=== PATIENT | female | born 1960 | race Two or more races ===

== ENCOUNTER 2025-02-02 22:39 | Emergency (ER) | payer MEDICARE, OTHER ==
[~2025-02-02] VITALS: Ht 162.6 cm; Wt 50.0 kg
--- NOTE | 2025-02-02 22:48 | ECG ---
[facility] Test Date: 2025-02-02 Test Time: 22:41:11 Pat Name: WANDY KOCH Department: ED Room: Gender: F Manager Of Product: GLENN : 1960 Requested By: MICHAEL ALVAREZ Order Number: [id number] Reading MD: Booker Olson Measurements Intervals Reva Rate: 91 P: 63 MA: 141 QRS: 40 QRSD: 91 T: 45 QT: 409 QTc: 504 Interpretive Statements Sinus rhythm Atrial premature complexes Consider right atrial enlargement Probable anterior infarct, age indeterminate Prolonged QT interval Electronically Signed On 02-03-2025 17:54:46 PDT by Booker Olson Please click the below link to view image of tracing.
--- NOTE | 2025-02-02 23:02 | ED.PDOC ---
Altered Mental Status HPI Comments 65 year old female presents to the ED via EMS with a chief complaint of ALOC. Per EMS, patient's friend called 911 for a wellness check, due to last contact being Saturday (01/29/25), patient was staying at [address]. Upon arrival, patient was found on the ground between bed and wall, unresponsive, covered in dog feces and urine. EMS states the hotel room was covered in dog feces and urine, had a strong ammonia smell. EMS noticed patient's lips are swollen, dried blood around mouth. Patient is altered, poor historian, not answering questions. PMHx is unknown at this time. No other associated symptoms, modifiers, recent injuries or sick contacts present at this time. Chief Complaint: ALOC Time Seen by MD: 22:45 Reviewed Notes: Medications, Allergies Allergies: Coded Allergies: UNOBTAINABLE (Unverified , 02/02/25) ALOC Information Source: Emergency Med Personnel Mode of Arrival: EMS Severity: Moderate Timing: Hours Duration: Since onset Prehospital treatment: None Quality: Decreased Alertness, Change in Behavior Past Medical History PAST MEDICAL HISTORY: Unknown Surgical History: Unknown FINANCIAL AUDITOR History: Unknown Family History Family History: Unknown Social History Smoker: Unknown Alcohol: Unknown Drugs: Unknown Lives In: Other Unable to Obtain due to: Altered Mental Status Physical Exam General Appearance: Normal HEENT: Normal ENT Inspection, Pharynx Normal, TMs Normal Neck: Full Range of Motion, Non-Tender, Normal, Normal Inspection Respiratory: Chest Non-Tender, Lungs Clear, No Accessory Muscle Use, No Respiratory Distress, Normal Breath Sounds Cardiovascular: No Edema, No JVD, No Murmur, No Gallop, Normal Peripheral Pulses, Regular Rate/Rhythm Breast Exam: Deferred Gastrointestinal: No Organomegaly, Non Tender, No Pulsatile Mass, Normal Bowel Sounds, Soft Genitalia: Deferred Pelvic: Deferred Rectal: Deferred Extremities: No calf tenderness, Normal capillary refill, Normal inspection, Normal range of motion, Non-tender, No pedal edema Musculoskeletal : Apperance: Normal Neurologic: Speech Problem (arousable to voice, + exp aphasia), Other Cerebellar Function: Normal Reflexes: Normal Skin: Dry, Normal Color, Warm Lymphatic: No Adenopathy Was a procedure done? Was a procedure done?: No Differential Diagnosis (ALOC) Differential Diagnosis: Dehydration, Hypoglycemia, Encephalopathy, Meningitis, Sepsis, Hypoxemia, Seizure, Closed Head Injury, CVA, Mass Lesion, SAH, Drug Overdose, ETOH Intoxication, Other X-Ray, Labs, Meds, VS Vital Signs Date Time Temp Pulse Resp B/P (MAP) Pulse Ox O2 Delivery O2 Flow Rate FiO2 02/03/25 02:00 93 22 140/74 (96) 93 02/03/25 00:00 98.3 96 24 148/82 (104) 94 98.3 02/02/25 23:11 Room Air* 0 21 02/02/25 22:51 98.0 98 22 142/79 95 98.0 02/02/25 22:41 91 Lab Test 02/03/25 01:51 02/03/25 00:55 02/03/25 00:19 02/02/25 23:05 Range/Units Troponin I High Sensitivity 43 *H 38 *H 24 </=34 ng/L Urine Color Yellow Yellow Urine Clarity Turbid H Clear Urine pH 5.5 5.0-9.0 Urine Specific [place] 1.018 1.001-1.035 Urine Protein Trace H Negative Urine Ketones 1+ H Negative Urine Blood Negative Negative /uL Urine Nitrite Negative Negative Urine Bilirubin Negative Negative Urine Urobilinogen Normal Negative mg/dL Urine Leukocyte Esterase Negative Negative /uL Urine RBC None seen 0 - 4 /hpf Urine Microscopic WBC 3 0-5 /HPF Urine Squamous Epithelial Cells Few <5 /hpf Urine Bacteria None seen None Seen /hpf Urine Hyaline Casts Few 0 - 2 /lpf Urine Mucus Few None Seen Urine Glucose Normal Normal mg/dL Urine Opiates Screen Neg NEGATIVE Urine Fentanyl Screen Neg NEGATIVE Urine Barbiturates Screen Neg NEGATIVE Urine Phencyclidine Screen Neg NEGATIVE Urine Amphetamines Screen Neg NEGATIVE Urine Benzodiazepines Screen Neg NEGATIVE Urine Cocaine Screen Neg NEGATIVE Urine Cannabinoids Screen Neg NEGATIVE White Blood Count 26.1 H 4.4-10.8 10^3/uL Red Blood Count 3.99 L 4.0-5.20 10^6/uL Hemoglobin 12.5 12.2-16.2 g/dL Hematocrit 37.6 36.0-46.0 % Mean Corpuscular Volume 94.2 80.0-100.0 fL Mean Corpuscular Hemoglobin 31.4 28.0-32.0 pg Mean Corpuscular Hemoglobin Concent 33.3 32.0-36.0 g/dL Red Cell Distribution Width 14.5 H 11.8-14.3 % Platelet Count 340 140-450 10^3/uL Mean Platelet Volume 9.3 6.9-10.8 fL Neutrophils (%) (Auto) 84.8 H 37.0-80.0 % Lymphocytes (%) (Auto) 8.9 L 10.0-50.0 % Monocytes (%) (Auto) 6.1 0.0-12.0 % Eosinophils (%) (Auto) 0.0 0.0-7.0 % Basophils (%) (Auto) 0.2 0.0-2.0 % Neutrophils # (Auto) 22.1 H 1.6-8.6 10 ^3/uL Lymphocytes # (Auto) 2.3 0.4-5.4 10 ^3/uL Monocytes # (Auto) 1.6 H 0-1.3 10 ^3/uL Eosinophils # (Auto) 0 0-0.8 10 ^3/uL Basophils # (Auto) 0.1 0-0.2 10 ^3/uL Nucleated Red Blood Cells 0.2 % Prothrombin Time 15.1 H 9.3-11.8 sec Prothrombin Time INR 1.48 H 0.9-1.15 Activated Partial Thromboplast Time 26.8 24.5-34.5 SEC Sodium Level 143 136-145 mmol/L Potassium Level 3.2 L 3.5-5.1 mmol/L Chloride Level 101 98-107 mmol/L Carbon Dioxide Level 28 20-31 mmol/L Anion Gap 14 5-15 Blood Urea Nitrogen 24 H 9-23 mg/dL Creatinine 0.61 0.550-1.02 mg/dL Glomerular Filtration Rate Calc 99 >90 mL/min BUN/Creatinine Ratio 39.3 H 10.0-20.0 Serum Glucose 135 H 74-106 mg/dL Lactic Acid Level 1.7 0.4-2.0 mmol/L Calcium Level 8.5 L 8.7-10.4 mg/dL Magnesium Level 2.1 1.6-2.6 mg/dL Total Bilirubin 0.4 0.2-1.0 mg/dL Aspartate Amino Transferase (AST) 41 H 13-40 U/L Alanine Aminotransferase (ALT) 29 7-40 U/L Alkaline Phosphatase 88 46-116 U/L Total Protein 6.6 5.7-8.2 g/dL Albumin 3.8 3.2-4.8 g/dL Plasma/Serum Blood Alcohol 6.4 <10 mg/dL Current Medications Medications (Trade) Dose Ordered Sig/Tamara Route Start Time Stop Time Status Last Admin Sodium Chloride 1,000 ml @ 1,000 mls/hr Q1H ONCE IVB 02/02/25 23:00 02/02/25 23:59 DC 02/02/25 23:11 Aspirin 300 mg ONCE ONCE FL 02/03/25 01:00 02/03/25 01:01 DC 02/03/25 01:06 Time of 1ST Reevaluation: 23:15 Reevaluation 1ST: Unchanged Patient Education/Counseling: Other Family Education/Counseling: No Family Present Additional Information The following tests were ordered, and results were reviewed by me: EKG -x3, TROP -x3, CBC, CMP, LA W/ REFLEX, PTPTT, UA, XY CHEST, CT HEAD WO CONTRAST, DRUG SCREEN, BLOOD CULTURE, MAGNESIUM, BLOOD ALCOHOL Additional Information was gathered from interviewing the following independent historians: EMS I reviewed and agreed with the following test results read by other providers:XY CHEST, CT HEAD WO CONTRAST, I discussed treatment and results with medical personnel and: patient Comprehensive systems review obtained and negative except for what is stated in the HPI. SEPSIS Sepsis Screen Physician Orders Electrocardigram (02/03/25 01:43) Chest Portable (02/02/25 22:52) Head Without Contrast (02/02/25 22:52) Engine Research Engineer (02/02/25 22:52) Blood Culture (02/02/25 22:52) Insert/Manage Urinary Catheter QSHIFT (02/02/25 23:15) Stroke Assessment (02/03/25 00:55) Angio Head/Neck (02/03/25 00:55) Nursing Dysphagia Screen (02/03/25 00:55) Neuro Checks Per Unit Protocol (02/03/25 00:55) Urinalysis (02/03/25 01:48) Vital Signs Date Time Temp Pulse Resp B/P (MAP) Pulse Ox O2 Delivery O2 Flow Rate FiO2 02/03/25 02:00 93 22 140/74 (96) 93 02/03/25 00:00 98.3 96 24 148/82 (104) 94 98.3 02/02/25 23:11 Room Air* 0 21 02/02/25 22:51 98.0 98 22 142/79 95 98.0 02/02/25 22:41 91 Laboratory Tests Test 02/02/25 23:05 Lactic Acid Level 1.7 mmol/L (0.4-2.0) White Blood Count 26.1 10^3/uL (4.4-10.8) H Medications Medications Dose Ordered Sig/Tamara Route Start Time Stop Time Status Last Admin Dose Admin Aspirin 300 mg ONCE ONCE FL 02/03/25 01:00 02/03/25 01:01 DC 02/03/25 01:06 Sodium Chloride 1,000 ml @ 1,000 mls/hr Q1H ONCE IVB 02/02/25 23:00 02/02/25 23:59 DC 02/02/25 23:11 Departure 1 Departure Time of Disposition: 02:56 Impression: Primary Impression: Metabolic encephalopathy Additional Impressions: Acute ischemic left MCA stroke 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 According to the patient's friend, she had last seen the patient approximately three days ago and became concerned when she hadn't heard from her. The friend called 911 for a wellness check. Police and paramedics subsequently found the patient in her motel room at [place] [address] with severely altered mental status and aphasia. No additional history is available from the patient due to her current neurological status. There is no information regarding onset of symptoms, associated symptoms, or past medical conditions that might contribute to her current presentation. Social History: Patient reportedly staying at [place] [address]. Additional social history unknown due to patient's altered mental status. Family History: Unknown due to patient's altered mental status. Vital Signs: Not documented in the apparatus operator. Physical Exam: General: Patient is lethargic but arousable to loud voice. Neurological: Expressive aphasia present. Patient not following commands. No obvious focal motor deficits noted. Lab Results: CBC: WBC elevated at 26,000/?L Coagulation: INR mildly elevated at 1.48 Chemistry: - Potassium: 3.2 mEq/L (low) - BUN: 24 mg/dL (elevated) - Creatinine: 0.6 mg/dL (normal) - Calcium: 8.5 mg/dL (slightly low) - AST: 41 U/L (borderline elevated) Lactate: 1.7 mmol/L (normal) Cardiac enzymes: - Initial troponin: 24 ng/L (normal) - Second troponin: 38 ng/L (elevated) - Third troponin: 43 ng/L (elevated) Imaging and Other Relevant Results: Non-contrast CT Head: Acute to subacute stroke in the distribution of the left posterior and middle cerebral arteries. CT Angiogram Head and Neck: Large vessel occlusion in the left internal carotid artery with stenosis distal to the middle cerebral artery and left posterior cerebral artery. Medical Decision Making: Summary Statement: 65-year-old female with no known medical history presenting with altered mental status and expressive aphasia found to have acute to subacute stroke involving left MCA and REAL ESTATE LEASING MANAGER territories with left ICA occlusion. Problem List: 1. Acute ischemic stroke with large vessel occlusion 2. Altered mental status 3. Expressive aphasia 4. Leukocytosis 5. Hypokalemia 6. Elevated troponin Differential Diagnosis: Acute ischemic stroke, hemorrhagic stroke, seizure, encephalitis, meningitis, metabolic encephalopathy, toxic ingestion, sepsis, hypoglycemia, hyponatremia. ED Course: Patient presented with altered mental status and aphasia. Initial workup revealed leukocytosis, hypokalemia, and rising troponin. Neuroimaging confirmed acute to subacute stroke with large vessel occlusion. Neurology was consulted, and transfer was arranged to [facility] for possible neurointerventional radiology intervention. Assessment and Plan: 1. Acute Ischemic Stroke with Large Vessel Occlusion: - CT head and CTA confirmed acute to subacute stroke in left MCA and REAL ESTATE LEASING MANAGER territories with left ICA occlusion - Transfer arranged to [facility] for higher level of care and possible neurointerventional radiology intervention - Patient outside window for tPA based on unknown time of onset and imaging findings suggesting subacute components. Pt given 300mg rectal aspirin 2. Altered Mental Status and Expressive Aphasia: - Secondary to acute stroke - Continue neurological checks - Maintain airway protection 3. Leukocytosis (WBC 26,000): - Likely stress response to stroke - Consider infectious workup including urinalysis, chest x-ray, and blood cultures if clinically indicated 4. Hypokalemia (K 3.2): - Initiate potassium replacement - Recheck levels after replacement 5. Elevated Troponin: - Trending upward (24 ? 38 ? 43) - Likely demand ischemia in setting of stroke - Monitor cardiac status - Consider cardiology consultation at receiving facility 6. Disposition: - Transfer to [facility] for higher level of care and possible neurointerventional radiology intervention Additional Notes: Patient transferred to [facility] for large vessel occlusion stroke intervention Billing Information: ICD-10: I63.411 - Cerebral infarction due to embolism of left middle cerebral artery ICD-10: I63.511 - Cerebral infarction due to unspecified occlusion or stenosis of left middle cerebral artery ICD-10: I65.2 - Occlusion and stenosis of carotid artery ICD-10: R40.4 - Transient alteration of awareness ICD-10: R47.01 - Expressive aphasia Critical Care Note Critical Care Time?: Yes (35 min-critical care time only) Critical care comment: Total critical care time: Approximately 36 minutes Due to a high probability of clinically significant, life threatening deterioration, the patient required my highest level of preparedness to intervene emergently and I personally spent this critical care time directly and personally managing the patient. This critical care time included obtaining a history; examining the patient; pulse oximetry; ordering and review of studies; arranging urgent treatment with development of a management plan; evaluation of patient's response to treatment; frequent reassessment; and, discussions with other providers. This critical care time was performed to assess and manage the high probability of imminent, life-threatening deterioration that could result in multi-organ failure. It was exclusive of separately billable procedures and treating other patients. Stability Stability form required: No Heart Score Heart Score: Heart Score Response (Comments) Value History Moderate Suspicious 1 EKG Repolarization Disturb 1 Age >65 2 Risk Factors 1 or 2 risk factors 1 Troponin 1-2 x's Normal limit 1 Total 6 I personally scribed for MICHAEL ALVAREZ MD ([email or web address]) on 02/02/25 at 23:02. Electronically submitted by Margret Devries ([email or web address]). I personally scribed for MICHAEL ALVAREZ MD ([email or web address]) on 02/02/25 at 23:16. Electronically submitted by Margret Devries ([email or web address]). MICHAEL ALVAREZ MD Feb 02, 2025 23:02
[2025-02-02] MEDS: SODIUM CHLORIDE 0.9% 1,000 ML IVB ONE (23:11)
[2025-02-02 23:30] LABS: Hematocrit 37.6 % (36.0-46.0); Hemoglobin 12.5 g/dL (12.2-16.2); Mean Corpuscular Hemoglobin 31.4 pg (28.0-32.0); Mean Corpuscular Volume 94.2 fL (80.0-100.0); Nucleated Red Blood Cells % 0.2 %
--- NOTE | 2025-02-02 23:36 | DVH ---
CHEST RADIOGRAPH REASON FOR EXAM: Shortness of breath COMPARISON: None TECHNIQUE: One view of the chest is provided FINDINGS: Evaluation is severely degraded by patient positioning. Numerous metallic radiodensities pr oject over the patient and obscure evaluation of the chest. The lung apices are excluded from view. T here is no large pleural effusion. There is no large pneumothorax. IMPRESSION: Suboptimal study. No large pneumothorax. No large pleural effusion.
[2025-02-02 23:44] LABS: INR 1.48 (0.9-1.15); Partial Thromboplastin Time 26.8 SEC (24.5-34.5); Prothrombin Time 15.1 sec (9.3-11.8)
[2025-02-02 23:47] LABS: Alanine Aminotransferase 29 U/L (7-40); Albumin 3.8 g/dL (3.2-4.8); Alkaline Phosphatase 88 U/L (46-116); Anion Gap 14 (5-15); BUN/Creatinine Ratio 39.3 (10.0-20.0); Carbon Dioxide 28 mmol/L (20-31); Chloride 101 mmol/L (98-107); Magnesium 2.1 mg/dL (1.6-2.6); Sodium 143 mmol/L (136-145); Total Protein 6.6 g/dL (5.7-8.2)
[2025-02-02 23:48] LABS: Bilirubin, Total 0.4 mg/dL (0.2-1.0)
[2025-02-02 23:51] LABS: Blood Urea Nitrogen 24 mg/dL (9-23); Calcium 8.5 mg/dL (8.7-10.4); Glucose 135 mg/dL (74-106); Potassium 3.2 mmol/L (3.5-5.1)
--- NOTE | 2025-02-03 00:08 | DVH ---
EXAM: CT HEAD WITHOUT CONTRAST INDICATION: ALOC TECHNIQUE: CT of the head without intravenous contrast. Radiation Dose : 1. Head: CT Dose: CTDI volume is 57.18 mGy. Dose-length product is 1012.4 mGy*cm The dose indicators for CT are the volume Computed Tomography (CT) Dose Index (CTDIvol) and the Dose Length Product (DLP), and are measured in units of mGy and mGy-cm, respectively. These indicators are not patient dose, but values generated from the CT scanner acquisition factors. The report includes radiation exposure data for exposures received during this examination. COMPARISON: None FINDINGS: There is no evidence of acute intracranial hemorrhage, extra-axial collection, mass effect, midline s hift, herniation or hydrocephalus. Broadly diminished attenuation with loss of salas-white matter differentiation throughout the left tem poral and occipital lobes and posterior left frontal lobe consistent with acute to subacute ischemic infarct in the distribution of the posterior cerebral and middle cerebral arteries. The ventricles, sulci and cisterns are age appropriate. Patchy periventricular and subcortical white matter hypoattenuation is nonspecific but may be related to small vessel ischemic disease. The visualized paranasal sinuses and mastoid air cells are clear. The surrounding soft tissues and osseous structures are unremarkable. IMPRESSION: 1. Acute to subacute appearing large territory infarct within the distribution of the left posterior and middle cerebral arteries. Critical Result: Acute to subacute infarct Findings discussed with MICHAEL ALVAREZ at 02/02/2025 11:54 PM, and acknowledged receipt and understa nding of the findings. Radiation optimization: All CT scans at this facility use at least one of these dose optimization dominick hniques: automated exposure control mA and/or kV adjustment per patient size (includes targeted exam s where dose is matched to clinical indication) or iterative reconstruction.
[2025-02-03 01:08] LABS: Urine Protein, UAD TRACE (Negative)
[2025-02-03] MEDS: IOHEXOL 350 MG/ML 100ML IJ ONE (01:29)
[2025-02-03 01:41] LABS: Amphetamine Screen, Urine Neg (NEGATIVE)
[2025-02-03 01:56] LABS: Barbiturate Scree,Urine Neg (NEGATIVE); Benzodiazephine Screen, Urine Neg (NEGATIVE); Cannabinoid Screen, Urine Neg (NEGATIVE); Cocaine Screen, Urine Neg (NEGATIVE); Opiate Scree,Urine Neg (NEGATIVE); Phencyclidine Screen, Urine Neg (NEGATIVE)
--- NOTE | 2025-02-03 02:15 | DVH ---
INDICATION: ALOC / stroke COMPARISON: None TECHNIQUE: CTA head without and with intravenous contrast. CTA neck with intravenous contrast. 3D image postprocessing was performed on a dedicated workstation and images were used for interpretation and reporting. Radiation Dose Information: CT Dose: CTDI volume is 25.88 mGy. Dose-length product is 816.28 mGy*cm FINDINGS: CT head: There is no evidence of acute intracranial hemorrhage, extra-axial collection, mass effect, midline s hift, herniation or hydrocephalus. The ventricles, sulci and cisterns are age appropriate. Diffuse loss of salas-white matter differentiation throughout the left occipital and temporal lobes as well as the posterior left frontal lobe within the posterior cerebral and partial middle cerebral territory distribution with concomitant parenchymal hypoattenuation consistent with acute to subacute infarct. The visualized paranasal sinuses and mastoid air cells are clear. The surrounding soft tissues and osseous structures are unremarkable. CTA head: Complete occlusion of the supraclinoid left internal carotid artery with minimal collateralized recon stitution of distal MCA which is severely diminished in its caliber. The left posterior cerebral daniel ry is not visualized. There is normal enhancement of the visualized distal right internal carotid, an terior and middle cerebral arteries. There is a normal anterior communicating artery complex. The r ight posterior communicating artery is normal in appearance and there is markedly diminished caliber of the left posterior communicating artery. The vertebral, basilar, cerebellar and posterior cerebra l arteries are within normal limits. Diminished early parenchymal enhancement within the left middle and posterior cerebral artery distributions. The visualized intracranial venous structures are guru sly unremarkable. CTA neck: The visualized thoracic aortic arch and proximal great vessels are unremarkable. The left common, internal and external carotid arteries are within normal limits. Atherosclerotic baljinder que of the carotid bulb without evidence of associated hemodynamically significant stenosis. The right common, internal and external carotid arteries are within normal limits. Atherosclerotic pl aque of the carotid bulb without evidence of associated hemodynamically significant stenosis. The cervical segments of the right and left vertebral arteries are within normal limits. The limited visualized lung apices reveal biapical paraseptal emphysematous change. Hypoattenuating r ight thyroid lobe nodules measure up to approximately 5 mm in diameter. The surrounding soft tissues and osseous structures are otherwise unremarkable. IMPRESSION: 1. Diffuse parenchymal hypoattenuation and loss of salas-white matter differentiation throughout the l eft middle and posterior cerebral artery territory consistent with acute to subacute ischemic infarct . 2. Complete occlusion of the left supraclinoid internal carotid artery with diminished caliber of the distal reconstituted middle cerebral artery and nonvisualized left posterior cerebral artery with di minished caliber of the left posterior communicating artery. 3. No evidence of aneurysm or dissection. 4. No evidence of hemodynamically significant cervical stenosis or dissection. All CT scans at this medical facility are performed using dose modulation techniques as appropriate t o a performed exam including the following: Automated exposure control was utilized; adjustment of th e MA and/or KV according to patient size; and use of iterative reconstruction technique.
[2025-02-03 03:20] VITALS: BP 133/78; PULSE 90; RESP 22; TEMP 97.9; O2SAT 94
== END 2025-02-03 03:39 | disposition short-term general hospital (02) ==
LOC: EDBD 22:39 → ER 22:39
DX: G93.41 Metabolic encephalopathy (principal); I63.512 Cerebral infarction due to unspecified occlusion or stenosis of left middle cerebral artery; Z79.899 Other long term (current) drug therapy
CPT/HCPCS: 36415; 70450; 70496; 70498; 71045; 80053; 80307; 80320; 81001; 82947; 82962; 83605; 83735; 84484; 85025; 85610; 85730; 87040; 93005; 96360; 99291; J7030; Q9967